=== PATIENT | male | born 1960 | race African-American/Black ===

== ENCOUNTER 2022-03-14 07:59 | Inpatient (IN) | payer MEDICARE, OTHER ==
[2022-03-14] MEDS ORDERED: Gadobenate Dimeglumine 529 MG/1 ML (20ML VIAL) ONE (08:00)
[2022-03-14] MEDS ORDERED: ISOVUE-370 76%-LOCM 1 ML ONE (08:00)
[2022-03-14 08:15] LABS: #Eosinphils 0.1 thou/uL (0.0-0.7); #Lymphocytes 1.8 thou/uL (1.20-3.40); #Monocytes 0.7 thou/uL (0.11-0.59); #Neutrophils 6.7 thou/uL (1.40-6.50); %Basophils 0.4 % (0.0-1.0); %Eosinophils 0.6 % (0.0-10.0); %Lymphocytes 19.2 % (21.0-51.0); %Monocytes 7.4 % (0.0-10.0); %Neutrophils 72.4 % (42.0-75.0); Hemoglobin 15.2 g/dL (14.0-18.0); Mean Corpuscular HGB CONC 33.4 g/dL (32.0-36.0); Mean Corpuscular Hemoglobin 30.4 pg (27.0-31.0); Mean Corpuscular Volume 90.8 fL (78.0-98.0); Mean Platelet Volume 9.6 fL (7.4-10.4); Platelet Count 186 thou/uL (130-400); RBC Distribution Width 13.2 % (11.5-14.5); Red Blood Cell (RBC) Count 5.01 mill/uL (4.70-6.10); White Blood Cell (WBC) Count 9.2 thou/uL (4.8-10.8)
[2022-03-14 08:23] LABS: INR-International Normal Ratio 0.9; Prothrombin Time 12.4 sec (12.0-14.7)
[2022-03-14 08:24] LABS: PTT 25.6 sec (22.9-36.1)
[2022-03-14 08:34] LABS: ALT (SGPT) 43 U/L (8-55); AST (SGOT) 31 U/L (5-34); Albumin 3.6 g/dL (3.5-5.0); Alkaline Phosphatase 105 U/L (40-110); Anion Gap 15 mmol/L (10-20); BUN (Urea Nitrogen) 20 mg/dL (8.4-25.7); Bilirubin, Total 0.3 mg/dL (0.2-1.2); CK (CPK) 112 U/L (30-200); Calc. Creatinine Clearance 0 mL/min (70-130); Calcium 10.1 mg/dL (7.8-10.44); Carbon Dioxide 25 mmol/L (22-29); Chloride 102 mmol/L (98-107); Estimated GFR 103; Globulin 4.2 g/dL (2.4-3.5); Glucose 262 mg/dL (70-105); Potassium 4.3 mmol/L (3.5-5.1); Protein, Total 7.8 g/dL (6.0-8.3); Sodium 138 mmol/L (136-145)
[2022-03-14 08:38] LABS: Acetaminophen Less than 10.0 mcg/mL (10.0-30.0); Alcohol Less than 10 mg/dL (Less than 10); Salicylate Less than 8.0 mg/dL (15.0-30.0)
[2022-03-14] MEDS ORDERED: Morphine 4 MG/ML VIAL ONE (09:26)
[2022-03-14] MEDS ORDERED: Ondansetron ODT 4 MG TAB PO PRN (10:43)
[2022-03-14] MEDS ORDERED: Senokot S 8.6-50 MG TAB PO PRN (10:43)
[2022-03-14] MEDS ORDERED: Bisacodyl 5 MG TAB PO PRN (10:43)
[2022-03-14] MEDS ORDERED: Dextrose 5% in Water 1,000 ML IV PRN (11:10)
[2022-03-14] MEDS ORDERED: Dextrose 50% Abboject 50 ML SYRINGE SLOW IVP PRN (11:10)
[2022-03-14 13:49] LABS: Amphetamine Not Detected (NotDetected); Barbiturates Screen Not Detected (NotDetected); Benzodiazepine Screen Not Detected (NotDetected); Cocaine Metabolite Screen Not Detected (NotDetected); Methadone Not Detected (NotDetected); Methamphetamine Not Detected (NotDetected); Opiate Screen Detected (NotDetected); Oxycodone Screen Not Detected (NotDetected); Phencyclidine (PCP) Not Detected (NotDetected); THC/Cannabinoid Screen Not Detected (NotDetected); Tricyclic Screen Not Detected (NotDetected)
[2022-03-14 13:55] LABS: Bilirubin Negative (Negative); Blood, Urine Negative (Negative); Clarity Clear (Clear); Glucose, Urine (Dipstick) Greater than 1000 mg/dL (Negative); Ketone, Urine Negative (Negative); Leukocyte Negative Leu/uL (Negative); Nitrite Negative (Negative); Protein, Urine (Dipstick) 20 mg/dL (Neg-Trace); Specific Gravity, Urine 1.048 (1.002-1.036); Urobilinogen Normal mg/dL (Less than 2)
[2022-03-14 13:56] VITALS: BMI 36.9
[2022-03-14] MEDS ORDERED: Naproxen 500 MG TAB PO SCH (14:45)
[2022-03-14] MEDS ORDERED: Insulin Glargine 30 UNITS/0.3 ML VIAL SC SCH (15:00)
[2022-03-14] MEDS: Acetaminophen 500 MG TAB PO SCH ×2 (15:25→22:31)
[2022-03-14] MEDS: HumaLOG 300 UNITS/3 ML VIAL SC SCH (16:50)
[2022-03-14] MEDS: HYDROcodone/Acetaminophen 5/325 mg Tablet PO PRN ×2 (16:54→22:29)
[2022-03-14] MEDS: metFORMIN 500 MG TAB PO SCH (16:55)
[2022-03-14] MEDS: Famotidine 20 MG TAB PO SCH (22:28)
[2022-03-14] MEDS: Mycophenolate 250 MG CAP PO SCH (22:29)
[2022-03-14] MEDS: Pyridostigmine Bromide IR 60 MG TAB PO SCH (22:30)
[2022-03-14] MEDS: Gabapentin 300 MG CAP PO SCH (22:30)
[2022-03-14] MEDS: Naproxen 500 MG TAB PO SCH (22:31)
[2022-03-14] MEDS: Simvastatin 10 MG TAB PO SCH (22:38)
[2022-03-14] MEDS: HumaLOG 300 UNITS/3 ML VIAL SC PRN (22:38)
[2022-03-15] MEDS: HumaLOG 300 UNITS/3 ML VIAL SC PRN ×3 (05:35→17:24)
[2022-03-15] MEDS: Levothyroxine Sodium 125 MCG TAB PO SCH (05:36)
[2022-03-15 05:43] LABS: #Eosinphils 0.1 thou/uL (0.0-0.7); #Lymphocytes 3.1 thou/uL (1.20-3.40); #Monocytes 1.1 thou/uL (0.11-0.59); #Neutrophils 6.7 thou/uL (1.40-6.50); %Basophils 0.4 % (0.0-1.0); %Lymphocytes 28.2 % (21.0-51.0); %Monocytes 9.6 % (0.0-10.0); %Neutrophils 60.9 % (42.0-75.0); Mean Corpuscular Hemoglobin 29.6 pg (27.0-31.0); Mean Corpuscular Volume 92.6 fL (78.0-98.0); Mean Platelet Volume 9.4 fL (7.4-10.4); Platelet Count 190 thou/uL (130-400); RBC Distribution Width 13.5 % (11.5-14.5); Red Blood Cell (RBC) Count 5.05 mill/uL (4.70-6.10); White Blood Cell (WBC) Count 10.9 thou/uL (4.8-10.8)
[2022-03-15 06:05] LABS: Anion Gap 13 mmol/L (10-20); BUN (Urea Nitrogen) 25 mg/dL (8.4-25.7); Calc. Creatinine Clearance 107 mL/min (70-130); Calcium 9.6 mg/dL (7.8-10.44); Carbon Dioxide 26 mmol/L (22-29); Chloride 103 mmol/L (98-107); Estimated GFR 76; Glucose 272 mg/dL (70-105); Potassium 3.9 mmol/L (3.5-5.1); Sodium 138 mmol/L (136-145)
[2022-03-15] MEDS: metFORMIN 500 MG TAB PO SCH ×2 (07:58→17:57)
[2022-03-15] MEDS ORDERED: Enoxaparin Sodium 40 MG/0.4 ML SYRINGE SC SCH (09:00)
[2022-03-15] MEDS: Lisinopril 2.5 MG TAB PO SCH (09:36)
[2022-03-15] MEDS: DULoxetine 30 MG CAP PO SCH (09:36)
[2022-03-15] MEDS: Mycophenolate 250 MG CAP PO SCH ×2 (09:37→20:35)
[2022-03-15] MEDS: Acetaminophen 500 MG TAB PO SCH ×3 (09:38→20:35)
[2022-03-15] MEDS: Gabapentin 300 MG CAP PO SCH ×3 (09:39→20:35)
[2022-03-15] MEDS: predniSONE 20 MG TAB PO SCH (09:40)
[2022-03-15] MEDS: Naproxen 500 MG TAB PO SCH ×2 (09:40→20:36)
[2022-03-15] MEDS: Famotidine 20 MG TAB PO SCH ×2 (09:40→20:36)
[2022-03-15] MEDS: Pyridostigmine Bromide IR 60 MG TAB PO SCH ×2 (09:40→20:36)
[2022-03-15] MEDS: Insulin Glargine 30 UNITS/0.3 ML VIAL SC SCH (09:41)
[2022-03-15] MEDS: Empagliflozin 10 MG TAB PO SCH (09:41)
[2022-03-15] MEDS: HumaLOG 300 UNITS/3 ML VIAL SC SCH ×3 (09:42→17:23)
[2022-03-15] MEDS: Simvastatin 10 MG TAB PO SCH (20:36)
[2022-03-15] MEDS ORDERED: Tamsulosin HCl 0.4 MG CAP PO SCH (21:00)
[2022-03-15] MEDS ORDERED: Insulin Glargine 30 UNITS/0.3 ML VIAL SC SCH (21:00)
[2022-03-16] MEDS: HYDROcodone/Acetaminophen 5/325 mg Tablet PO PRN (04:07)
[2022-03-16 04:44] LABS: #Lymphocytes 1.2 thou/uL (1.20-3.40); #Monocytes 0.8 thou/uL (0.11-0.59); #Neutrophils 9.7 thou/uL (1.40-6.50); %Basophils 0.4 % (0.0-1.0); %Eosinophils 0.1 % (0.0-10.0); %Neutrophils 82.5 % (42.0-75.0); Hemoglobin 14.2 g/dL (14.0-18.0); Mean Corpuscular HGB CONC 31.7 g/dL (32.0-36.0); Mean Corpuscular Hemoglobin 29.1 pg (27.0-31.0); Mean Corpuscular Volume 91.6 fL (78.0-98.0); Mean Platelet Volume 9.5 fL (7.4-10.4); Platelet Count 181 thou/uL (130-400); RBC Distribution Width 13.4 % (11.5-14.5); Red Blood Cell (RBC) Count 4.87 mill/uL (4.70-6.10); White Blood Cell (WBC) Count 11.8 thou/uL (4.8-10.8)
[2022-03-16] MEDS: Levothyroxine Sodium 125 MCG TAB PO SCH (04:56)
[2022-03-16 05:14] LABS: Anion Gap 15 mmol/L (10-20); BUN (Urea Nitrogen) 26 mg/dL (8.4-25.7); Calc. Creatinine Clearance 134 mL/min (70-130); Calcium 9.4 mg/dL (7.8-10.44); Carbon Dioxide 24 mmol/L (22-29); Chloride 106 mmol/L (98-107); Estimated GFR 98; Glucose 215 mg/dL (70-105); Potassium 4.3 mmol/L (3.5-5.1); Sodium 141 mmol/L (136-145)
[2022-03-16] MEDS: HumaLOG 300 UNITS/3 ML VIAL SC PRN ×2 (06:39→11:57)
[2022-03-16] MEDS: Mycophenolate 250 MG CAP PO SCH (08:49)
[2022-03-16] MEDS: Lisinopril 2.5 MG TAB PO SCH (08:49)
[2022-03-16] MEDS: Acetaminophen 500 MG TAB PO SCH ×2 (08:50→14:28)
[2022-03-16] MEDS: Famotidine 20 MG TAB PO SCH (08:51)
[2022-03-16] MEDS: Naproxen 500 MG TAB PO SCH (08:51)
[2022-03-16] MEDS: predniSONE 20 MG TAB PO SCH (08:51)
[2022-03-16] MEDS: Pyridostigmine Bromide IR 60 MG TAB PO SCH (08:52)
[2022-03-16] MEDS: Gabapentin 300 MG CAP PO SCH ×2 (08:52→14:27)
[2022-03-16] MEDS: Empagliflozin 10 MG TAB PO SCH (08:52)
[2022-03-16] MEDS: Insulin Glargine 30 UNITS/0.3 ML VIAL SC SCH (08:53)
[2022-03-16] MEDS: DULoxetine 30 MG CAP PO SCH (08:53)
[2022-03-16] MEDS: HumaLOG 300 UNITS/3 ML VIAL SC SCH ×2 (08:54→11:57)
[2022-03-16] MEDS ORDERED: CONFIRM ALL DAY 1 DOSES ARE TIMED FOR DAY 1 FS SCH (09:30)
[2022-03-16] MEDS ORDERED: methylPREDNISolone 4 mg Tablet PO SCH (12:00)
[2022-03-16 12:12] VITALS: BP 116/80; TEMP 97.7
[2022-03-17] MEDS ORDERED: methylPREDNISolone 4 mg Tablet PO SCH ×2 (08:00→21:00)
[2022-03-18] MEDS ORDERED: methylPREDNISolone 4 mg Tablet PO SCH (08:00)
[2022-03-19] MEDS ORDERED: methylPREDNISolone 4 mg Tablet PO SCH (08:00)
[2022-03-20] MEDS ORDERED: methylPREDNISolone 4 mg Tablet PO SCH (08:00)
[2022-03-21] MEDS ORDERED: methylPREDNISolone 4 mg Tablet PO SCH (08:00)
== END 2022-03-16 15:38 | disposition home health service (06) | DRG 93 ==
LOC: ERS 07:59 → ERHOLD 10:18 → NEURO 13:16 → OBSVTOIN 03-15 12:36
PROVIDERS: ADMIT Family Medicine; ATTEND Family Medicine
DX: G95.19 Other vascular myelopathies (principal); Z20.822 Contact with and (suspected) exposure to COVID-19; G70.00 Myasthenia gravis without (acute) exacerbation; E11.9 Type 2 diabetes mellitus without complications; I10 Essential (primary) hypertension; R33.9 Retention of urine, unspecified; Z79.899 Other long term (current) drug therapy; Z79.4 Long term (current) use of insulin; Z79.890 Hormone replacement therapy
CPT/HCPCS: 36415; 36416; 70450; 70496; 70498; 70551; 71045; 72050; 72125; 72141; 72142; 80048; 80053; 80306; 80307; 82550; 83605; 84484; 85025; 85610; 85652; 85730; 86140; 93005; 94760; 96374; A9577; J1815; J2270; J7509; J7512; J7517; Q9966; U0003; U0005

== ENCOUNTER 2022-03-26 09:22 | Emergency (ER) | payer MEDICARE ==
[2022-03-26 10:43] LABS: Bacteria/HPF 2+ HPF (None Seen); Bilirubin Negative (Negative); Blood, Urine 3+ (Negative); Glucose, Urine (Dipstick) Greater than 1000 mg/dL (Negative); Ketone, Urine Negative (Negative); Leukocyte 500 Leu/uL (Negative); Nitrite Negative (Negative); Protein, Urine (Dipstick) 200 mg/dL (Neg-Trace); RBC/HPF Greater than 50 HPF (0-3); Specific Gravity, Urine 1.027 (1.002-1.036); Squamous Epithelial 0-3 HPF (0-3); Urobilinogen Normal mg/dL (Less than 2); WBC/HPF Greater than 50 HPF (0-3); pH, Urine 5.5 (5.0-9.0)
[2022-03-26 10:49] LABS: Clarity Turbid (Clear)
[2022-03-26 10:58] LABS: #Eosinphils 0.1 thou/uL (0.0-0.7); #Lymphocytes 1.9 thou/uL (1.20-3.40); #Monocytes 0.8 thou/uL (0.11-0.59); %Basophils 0.4 % (0.0-1.0); %Eosinophils 0.6 % (0.0-10.0); %Lymphocytes 19.7 % (21.0-51.0); %Monocytes 8.2 % (0.0-10.0); %Neutrophils 71.2 % (42.0-75.0); Mean Corpuscular HGB CONC 32.4 g/dL (32.0-36.0); Mean Corpuscular Hemoglobin 29.9 pg (27.0-31.0); Mean Corpuscular Volume 92.2 fL (78.0-98.0); Mean Platelet Volume 9.3 fL (7.4-10.4); Platelet Count 187 thou/uL (130-400); RBC Distribution Width 13.1 % (11.5-14.5); Red Blood Cell (RBC) Count 4.68 mill/uL (4.70-6.10); White Blood Cell (WBC) Count 9.9 thou/uL (4.8-10.8)
[2022-03-26 11:15] LABS: ALT (SGPT) 24 U/L (8-55); AST (SGOT) 17 U/L (5-34); Alkaline Phosphatase 97 U/L (40-110); Anion Gap 14 mmol/L (10-20); BUN (Urea Nitrogen) 26 mg/dL (8.4-25.7); Bilirubin, Total 0.4 mg/dL (0.2-1.2); Calc. Creatinine Clearance 0 mL/min (70-130); Calcium 9.5 mg/dL (7.8-10.44); Carbon Dioxide 25 mmol/L (23-31); Chloride 101 mmol/L (98-107); Estimated GFR 98; Glucose 384 mg/dL (80-115); Potassium 3.9 mmol/L (3.5-5.1); Sodium 136 mmol/L (136-145)
== END 2022-03-26 11:40 | disposition home or self-care (01) ==
LOC: ERS 09:22
DX: N39.0 Urinary tract infection, site not specified (principal); G70.00 Myasthenia gravis without (acute) exacerbation; E11.40 Type 2 diabetes mellitus with diabetic neuropathy, unspecified; E78.5 Hyperlipidemia, unspecified; Z79.899 Other long term (current) drug therapy; Z79.4 Long term (current) use of insulin
CPT/HCPCS: 80053; 81003; 81015; 83880; 84484; 85025; 87077; 87086

== ENCOUNTER 2022-03-27 18:19 | Inpatient (IN) | payer MEDICARE ==
[2022-03-27] MEDS ORDERED: Norepinephrine 4 MG/4 ML VIAL ONE ×2 (18:46→18:47)
[2022-03-27 19:02] LABS: #Basophils 0.1 thou/uL (0.0-0.2); #Neutrophils 12.1 thou/uL (1.40-6.50); %Basophils 0.7 % (0.0-1.0); %Eosinophils 0.2 % (0.0-10.0); %Lymphocytes 12.4 % (21.0-51.0); %Monocytes 12.5 % (0.0-10.0); %Neutrophils 74.3 % (42.0-75.0); Hemoglobin 13.2 g/dL (14.0-18.0); Mean Corpuscular HGB CONC 31.6 g/dL (32.0-36.0); Mean Corpuscular Hemoglobin 29.3 pg (27.0-31.0); Mean Platelet Volume 9.2 fL (7.4-10.4); Platelet Count 185 thou/uL (130-400); RBC Distribution Width 13.3 % (11.5-14.5); White Blood Cell (WBC) Count 16.2 thou/uL (4.8-10.8)
[2022-03-27] MEDS ORDERED: Piperacillin/Tazobactam 4.5 GM VIAL ONE (19:09)
[2022-03-27] MEDS ORDERED: IMMUNE GLOBULIN IVPB SCH (19:15)
[2022-03-27] MEDS ORDERED: ADMIXTURE FEE IVPB SCH (19:15)
[2022-03-27] MEDS ORDERED: Propofol 1,000 MG/100 ML VIAL IV ONE (19:18)
[2022-03-27] MEDS ORDERED: Rocuronium Bromide 10 MG/ML (10ML VIAL) ONE (19:18)
[2022-03-27 19:20] LABS: Bilirubin Negative (Negative); Blood, Urine Large (Negative); Glucose, Urine (Dipstick) 100 mg/dL (Negative); Ketone, Urine Negative (Negative); Leukocyte Large (Negative); Nitrite Negative (Negative); Protein, Urine (Dipstick) 100 mg/dL (Neg-Trace); Urobilinogen 0.2 mg/dL (Less than 2)
[2022-03-27 19:24] LABS: Lipase 11 U/L (8-78); Magnesium 1.2 mg/dL (1.6-2.6)
[2022-03-27 19:26] LABS: Clarity Hazy (Clear)
[2022-03-27 19:27] LABS: Specific Gravity, Urine 1.002 (1.002-1.036)
[2022-03-27 19:28] LABS: Bacteria/HPF 2+ HPF (None Seen); Squamous Epithelial 0-3 HPF (0-3)
[2022-03-27] MEDS ORDERED: Midazolam HCl 5 mg/ml Vial ONE (19:34)
[2022-03-27 19:42] LABS: Analyzer IN Cardio ER; Base Excess (BEa) -7.1 mEq/L (-2.0 to +3.0); CO2 Tension 35.3 mmHg (35.0-45.0); Calcium, Ionized (arterial) 1.19 mmol/L (1.12-1.30); Carboxyhemoglobin (COHb) 0.3 gm% (0.0-3.0); Hemoglobin (Hb) 13.8 g/dL (14.0-18.0); O2 Tension (PaO2), arterial 235.6 mmHg (> 80.0); Potassium - ABG Lab 3.48 mmol/L (3.70-5.30); pH, Arterial 7.33 (7.35-7.45)
[2022-03-27 19:45] LABS: Puncture Site LRA
[2022-03-27 19:46] LABS: ALT (SGPT) 25 U/L (8-55); AST (SGOT) 36 U/L (5-34); Albumin 2.6 g/dL (3.4-4.8); Alkaline Phosphatase 97 U/L (40-110); Anion Gap 19 mmol/L (10-20); BUN (Urea Nitrogen) 21 mg/dL (8.4-25.7); Bilirubin, Total 0.5 mg/dL (0.2-1.2); Calc. Creatinine Clearance 0 mL/min (70-130); Carbon Dioxide 16 mmol/L (23-31); Chloride 109 mmol/L (98-107); Estimated GFR 36; Globulin 4.3 g/dL (2.4-3.5); Glucose 270 mg/dL (80-115); Potassium 4.7 mmol/L (3.5-5.1); Protein, Total 6.9 g/dL (5.8-8.1); Sodium 139 mmol/L (136-145)
[2022-03-27 19:46] LABS: ALV-art Gradient 76.775 mmHg (0-20)
[2022-03-27] MEDS ORDERED: Vancomycin 1 GM/200 ML BAG ONE (20:08)
[2022-03-27] MEDS ORDERED: Acetaminophen 650 MG Suppository ONE (20:25)
[2022-03-27] MEDS ORDERED: Acetaminophen 325 MG Suppository ONE (20:25)
[2022-03-27] MEDS ORDERED: Fentanyl CADD 100 ML IV SCH (21:00)
[2022-03-27] MEDS ORDERED: Acetaminophen 325 MG TAB PO PRN (21:16)
[2022-03-27] MEDS ORDERED: Acetaminophen 650 MG Suppository PR PRN (21:16)
[2022-03-27] MEDS ORDERED: Ondansetron PF 4 MG/2 ML Vial IVP PRN (21:16)
[2022-03-27] MEDS ORDERED: Ondansetron ODT 4 MG TAB PO PRN (21:16)
[2022-03-27] MEDS ORDERED: NOREPINEPHRINE 8 MG/250 ML-D5W 250 ML IVPB PRN (21:19)
[2022-03-27] MEDS ORDERED: Ventilator Sedation Protocol 1 EACH FS SCH (21:30)
[2022-03-27] MEDS ORDERED: Midazolam HCl 2 mg/2 ml Vial SLOW IVP PRN (21:34)
[2022-03-27 21:36] LABS: SARS-CoV-2 NAA Rapid Test Not Detected (NotDetected)
[2022-03-27] MEDS ORDERED: Morphine 2 MG/ML VIAL SLOW IVP PRN (21:45)
[2022-03-27] MEDS ORDERED: DISCONTINUE PREVIOUS NARCOTIC PAIN MEDICATIONS AND BENZODIAZEPINES FS SCH (21:45)
[2022-03-27] MEDS ORDERED: Fentanyl BOLUS 250 ML IVPB PRN (21:45)
[2022-03-27] MEDS ORDERED: Propofol BOLUS 1,000 MG/100 ML VIAL IV PRN (21:45)
[2022-03-27] MEDS ORDERED: diphenhydrAMINE 50 MG/ML VIAL ONE (21:48)
[2022-03-27] MEDS ORDERED: methylPREDNISolone Sod Succ/PF 125 MG/2 ML VIAL ONE (21:48)
[2022-03-27] MEDS ORDERED: EPINEPHrine 1 MG/10 ML Abboject SYRINGE ONE (21:48)
[2022-03-27] MEDS ORDERED: EPINEPHrine 1 MG/ML VIAL ONE (21:52)
[2022-03-27] MEDS ORDERED: Meropenem 1 GM in Sodium Chloride 0.9% 100 ML IVPB SCH ×2 (22:00→23:00)
[2022-03-27 22:41] LABS: Hemoglobin A1c 10.6 % (4.0-6.0)
[2022-03-27] MEDS ORDERED: Dextrose 50% Abboject 50 ML SYRINGE SLOW IVP PRN (22:42)
[2022-03-27] MEDS ORDERED: Dextrose 5% in Water 1,000 ML IV PRN (22:42)
[2022-03-27] MEDS ORDERED: HumaLOG 300 UNITS/3 ML VIAL SC PRN (22:42)
[2022-03-27] MEDS ORDERED: Vancomycin 1 GM in Premix Bag 1 BAG IVPB SCH (23:00)
[2022-03-27] MEDS ORDERED: Magnesium Sulfate In Water 4 GM in Premix Bag 1 BAG IVPB SCH (23:00)
[2022-03-27] MEDS: Sodium Chloride 0.9% 1,000 ML IV SCH (23:39)
[2022-03-28] MEDS: HumaLOG 300 UNITS/3 ML VIAL SC PRN ×4 (00:02→21:12)
[2022-03-28 05:32] LABS: Anion Gap 18 mmol/L (10-20); BUN (Urea Nitrogen) 20 mg/dL (8.4-25.7); Calc. Creatinine Clearance 74 mL/min (70-130); Calcium 8.1 mg/dL (7.8-10.44); Carbon Dioxide 14 mmol/L (23-31); Chloride 107 mmol/L (98-107); Estimated GFR 47; Glucose 460 mg/dL (80-115); Sodium 134 mmol/L (136-145)
[2022-03-28] MEDS: Sodium Chloride 0.9% 1,000 ML IV SCH ×3 (05:32→15:58)
[2022-03-28 05:54] LABS: Band 8 % (5-11); Hemoglobin 12.7 g/dL (14.0-18.0); Hypochromia SLIGHT = 6-15 cells (100X) (0-5/hpf); Lymphocytes 1 % (21-51); MDiff Complete? YES; Mean Corpuscular HGB CONC 31.2 g/dL (32.0-36.0); Mean Corpuscular Hemoglobin 29.4 pg (27.0-31.0); Mean Corpuscular Volume 94.2 fL (78.0-98.0); Mean Platelet Volume 9.5 fL (7.4-10.4); Monocytes 1 % (0-10); Neutrophil 89 % (42-75); Platelet Count 158 thou/uL (130-400); Platelet Morphology Comment Appears Adequate; Polychromasia SLIGHT = 2-3 cells (100X) (0-2/hpf); RBC Distribution Width 13.4 % (11.5-14.5); White Blood Cell (WBC) Count 16.5 thou/uL (4.8-10.8)
[2022-03-28] MEDS: Enoxaparin Sodium 40 MG/0.4 ML SYRINGE SC SCH (07:23)
[2022-03-28] MEDS: Propofol 1,000 MG/100 ML VIAL IV PRN ×2 (07:23→15:58)
[2022-03-28 08:05] LABS: Legionella Urinary Ag Negative (Negative); Strep pneumo Urine Ag NEGATIVE (NEGATIVE)
[2022-03-28] MEDS ORDERED: Meropenem 1 GM in Sodium Chloride 0.9% 100 ML IVPB SCH (09:00)
[2022-03-28] MEDS ORDERED: Pyridostigmine Bromide IR 60 MG TAB PO SCH ×2 (09:00)
[2022-03-28] MEDS: Meropenem 1 GM in Sodium Chloride 0.9% 100 ML IVPB SCH ×2 (09:20→15:59)
[2022-03-28] MEDS: Pantoprazole 40 MG VIAL IVP SCH (09:24)
[2022-03-28] MEDS: Insulin Glargine 30 UNITS/0.3 ML VIAL SC SCH ×2 (09:24→21:42)
[2022-03-28] MEDS: methylPREDNISolone Sod Succ 1 GM, Admixture Fee 1 EACH in Sodium Chloride 0.9% 250 ML 2... IVPB SCH (10:05)
[2022-03-28] MEDS: Mycophenolate 250 MG CAP PO SCH ×2 (12:28→20:58)
[2022-03-28] MEDS: Pyridostigmine Bromide IR 60 MG TAB PO SCH ×2 (15:41→21:05)
[2022-03-28] MEDS: Latanoprost 0.005% Ophth Soln 2.5 ml Bottle EA EYE SCH (20:57)
[2022-03-28] MEDS: Vancomycin 1.5 GRAM/300 ML BAG 1.5 GM in Premix Bag 1 BAG IVPB SCH (21:06)
[2022-03-28] MEDS ORDERED: Fentanyl CADD 100 ML ONE (23:26)
[2022-03-28] MEDS: Fentanyl CADD 100 ML IV SCH (23:30)
[2022-03-29] MEDS: Meropenem 1 GM in Sodium Chloride 0.9% 100 ML IVPB SCH ×3 (00:19→16:22)
[2022-03-29] MEDS: Propofol 1,000 MG/100 ML VIAL IV PRN ×4 (00:23→17:05)
[2022-03-29] MEDS: Sodium Chloride 0.9% 1,000 ML IV SCH ×2 (03:30→11:32)
[2022-03-29] MEDS: Levothyroxine Sodium 125 MCG TAB PO SCH (05:46)
[2022-03-29] MEDS: HumaLOG 300 UNITS/3 ML VIAL SC PRN ×4 (05:46→22:48)
[2022-03-29 07:28] LABS: Actual Bicarbonate (HCO3a) 16.8 mEq/L (22-28); CO2 Tension 29.1 mmHg (35.0-45.0); Calcium, Ionized (arterial) 1.21 mmol/L (1.12-1.30); Carboxyhemoglobin (COHb) 0.6 gm% (0.0-3.0); Hemoglobin (Hb) 13.4 g/dL (14.0-18.0); O2 Tension (PaO2), arterial 102.5 mmHg (> 80.0); Potassium - ABG Lab 4.24 mmol/L (3.70-5.30); pH, Arterial 7.38 (7.35-7.45)
[2022-03-29 07:30] LABS: Hemoglobin 12.8 g/dL (14.0-18.0); Mean Corpuscular HGB CONC 31.8 g/dL (32.0-36.0); Mean Corpuscular Hemoglobin 29.4 pg (27.0-31.0); Mean Corpuscular Volume 92.3 fL (78.0-98.0); Mean Platelet Volume 10.2 fL (7.4-10.4); Platelet Count 157 thou/uL (130-400); RBC Distribution Width 13.4 % (11.5-14.5); Red Blood Cell (RBC) Count 4.34 mill/uL (4.70-6.10); White Blood Cell (WBC) Count 19.1 thou/uL (4.8-10.8)
[2022-03-29] MEDS: Pantoprazole 40 MG VIAL IVP SCH (07:41)
[2022-03-29] MEDS: Pyridostigmine Bromide IR 60 MG TAB PO SCH ×3 (07:42→20:46)
[2022-03-29] MEDS: Enoxaparin Sodium 40 MG/0.4 ML SYRINGE SC SCH (07:42)
[2022-03-29] MEDS: Insulin Glargine 30 UNITS/0.3 ML VIAL SC SCH ×3 (07:42→20:45)
[2022-03-29] MEDS: Mycophenolate 250 MG CAP PO SCH ×2 (07:49→20:46)
[2022-03-29] MEDS: methylPREDNISolone Sod Succ 1 GM, Admixture Fee 1 EACH in Sodium Chloride 0.9% 250 ML 2... IVPB SCH (07:50)
[2022-03-29 08:29] LABS: Band 7 % (5-11); Lymphocytes 7 % (21-51); MDiff Complete? YES; Monocytes 3 % (0-10); Neutrophil 83 % (42-75); RBC Morphology Normal
[2022-03-29 08:43] LABS: Anion Gap 20 mmol/L (10-20); Chloride 112 mmol/L (98-107); Potassium 4.5 mmol/L (3.5-5.1); Sodium 140 mmol/L (136-145)
[2022-03-29 08:45] LABS: BUN (Urea Nitrogen) 25 mg/dL (8.4-25.7); CK (CPK) 103 U/L (30-200); Calc. Creatinine Clearance 90 mL/min (70-130); Calcium 8.7 mg/dL (7.8-10.44); Carbon Dioxide 13 mmol/L (23-31); Estimated GFR 60; Glucose 362 mg/dL (80-115); Magnesium 2.2 mg/dL (1.6-2.6)
[2022-03-29] MEDS ORDERED: OCTAGAM 10% (10 GM/100 ML VIAL) IVPB SCH (09:00)
[2022-03-29 10:06] LABS: ALV-art Gradient 110.675 mmHg (0-20); Puncture Site RRA
[2022-03-29] MEDS: ADMIXTURE FEE IVPB SCH (10:24)
[2022-03-29] MEDS: IMMUNE GLOBULIN IVPB SCH (10:24)
[2022-03-29] MEDS: HumuLIN 70/30 (300 UNITS/3 ML VIAL) SC SCH ×2 (11:28→20:47)
[2022-03-29] MEDS: Latanoprost 0.005% Ophth Soln 2.5 ml Bottle EA EYE SCH (20:48)
[2022-03-29 22:27] LABS: Vancomycin, Trough 11.4 ug/mL
[2022-03-29] MEDS ORDERED: VANCOMYCIN 2 GRAM/500 ML BAG 2 GM in Premix Bag 1 BAG IVPB SCH (23:00)
[2022-03-29] MEDS: Vancomycin 1.5 GRAM/300 ML BAG 1.5 GM in Premix Bag 1 BAG IVPB SCH (23:17)
[2022-03-30] MEDS: Sodium Chloride 0.9% 1,000 ML IV SCH ×3 (01:37→21:23)
[2022-03-30] MEDS: Meropenem 1 GM in Sodium Chloride 0.9% 100 ML IVPB SCH ×3 (01:42→16:41)
[2022-03-30] MEDS: Propofol 1,000 MG/100 ML VIAL IV PRN ×4 (03:03→20:11)
[2022-03-30] MEDS: HumaLOG 300 UNITS/3 ML VIAL SC PRN ×4 (04:40→21:19)
[2022-03-30] MEDS: Levothyroxine Sodium 125 MCG TAB PO SCH (05:20)
[2022-03-30 05:29] LABS: #Lymphocytes 0.3 thou/uL (1.20-3.40); #Monocytes 0.4 thou/uL (0.11-0.59); #Neutrophils 11.5 thou/uL (1.40-6.50); %Lymphocytes 2.7 % (21.0-51.0); %Monocytes 2.9 % (0.0-10.0); %Neutrophils 94.4 % (42.0-75.0); Hemoglobin 12.9 g/dL (14.0-18.0); Mean Corpuscular HGB CONC 32.5 g/dL (32.0-36.0); Mean Corpuscular Hemoglobin 29.2 pg (27.0-31.0); Mean Platelet Volume 10.3 fL (7.4-10.4); Platelet Count 167 thou/uL (130-400); RBC Distribution Width 13.3 % (11.5-14.5); Red Blood Cell (RBC) Count 4.42 mill/uL (4.70-6.10); White Blood Cell (WBC) Count 12.2 thou/uL (4.8-10.8)
[2022-03-30 05:52] LABS: Anion Gap 15 mmol/L (10-20); BUN (Urea Nitrogen) 24 mg/dL (8.4-25.7); Calc. Creatinine Clearance 107 mL/min (70-130); Calcium 8.6 mg/dL (7.8-10.44); Carbon Dioxide 21 mmol/L (23-31); Chloride 106 mmol/L (98-107); Estimated GFR 76; Glucose 295 mg/dL (80-115); Potassium 3.3 mmol/L (3.5-5.1); Sodium 139 mmol/L (136-145)
[2022-03-30] MEDS: hydrALAZINE 20 MG/ML VIAL SLOW IVP PRN (06:42)
[2022-03-30 07:40] LABS: Actual Bicarbonate (HCO3a) 23.1 mEq/L (22-28); CO2 Tension 29.7 mmHg (35.0-45.0); Calcium, Ionized (arterial) 1.15 mmol/L (1.12-1.30); Carboxyhemoglobin (COHb) 0.3 gm% (0.0-3.0); Hemoglobin (Hb) 13.1 g/dL (14.0-18.0); O2 Tension (PaO2), arterial 101.6 mmHg (> 80.0); pH, Arterial 7.51 (7.35-7.45)
[2022-03-30 08:01] LABS: ALV-art Gradient 110.825 mmHg (0-20); Puncture Site LBA
[2022-03-30] MEDS: Fentanyl CADD 100 ML IV SCH (09:00)
[2022-03-30] MEDS: Enoxaparin Sodium 40 MG/0.4 ML SYRINGE SC SCH (09:00)
[2022-03-30] MEDS: Insulin Glargine 30 UNITS/0.3 ML VIAL SC SCH ×3 (09:01→21:23)
[2022-03-30] MEDS: HumuLIN 70/30 (300 UNITS/3 ML VIAL) SC SCH (09:02)
[2022-03-30] MEDS: Pantoprazole 40 MG VIAL IVP SCH (09:03)
[2022-03-30] MEDS: Mycophenolate 250 MG CAP PO SCH ×2 (09:03→21:19)
[2022-03-30] MEDS: Pyridostigmine Bromide IR 60 MG TAB PO SCH ×3 (09:16→21:19)
[2022-03-30] MEDS: methylPREDNISolone Sod Succ 1 GM, Admixture Fee 1 EACH in Sodium Chloride 0.9% 250 ML 2... IVPB SCH (09:23)
[2022-03-30] MEDS ORDERED: Electrolyte Replacement Protocol 1 EACH FS ONE (10:21)
[2022-03-30] MEDS ORDERED: Potassium Chloride 20 MEQ TAB PER TUBE SCH (10:30)
[2022-03-30] MEDS: IMMUNE GLOBULIN IVPB SCH (10:31)
[2022-03-30] MEDS: ADMIXTURE FEE IVPB SCH (10:31)
[2022-03-30] MEDS ORDERED: Electrolyte Replacement Protocol FS PRN (10:45)
[2022-03-30] MEDS ORDERED: Lisinopril 2.5 MG TAB PO SCH (10:45)
[2022-03-30] MEDS: Latanoprost 0.005% Ophth Soln 2.5 ml Bottle EA EYE SCH (21:20)
[2022-03-31] MEDS: Meropenem 1 GM in Sodium Chloride 0.9% 100 ML IVPB SCH ×3 (00:21→16:57)
[2022-03-31] MEDS: Propofol 1,000 MG/100 ML VIAL IV PRN ×2 (02:45→09:52)
[2022-03-31] MEDS: HumaLOG 300 UNITS/3 ML VIAL SC PRN ×3 (04:48→15:52)
[2022-03-31 05:03] LABS: #Lymphocytes 0.2 thou/uL (1.20-3.40); #Monocytes 0.3 thou/uL (0.11-0.59); %Basophils 0.2 % (0.0-1.0); %Lymphocytes 2.8 % (21.0-51.0); %Monocytes 3.7 % (0.0-10.0); %Neutrophils 93.3 % (42.0-75.0); Mean Corpuscular HGB CONC 31.6 g/dL (32.0-36.0); Mean Corpuscular Hemoglobin 29.4 pg (27.0-31.0); Mean Platelet Volume 10.3 fL (7.4-10.4); Platelet Count 173 thou/uL (130-400); RBC Distribution Width 13.3 % (11.5-14.5); Red Blood Cell (RBC) Count 4.44 mill/uL (4.70-6.10); White Blood Cell (WBC) Count 7.5 thou/uL (4.8-10.8)
[2022-03-31] MEDS: Levothyroxine Sodium 125 MCG TAB PO SCH (05:18)
[2022-03-31 05:21] LABS: Anion Gap 10 mmol/L (10-20); BUN (Urea Nitrogen) 31 mg/dL (8.4-25.7); Calc. Creatinine Clearance 112 mL/min (70-130); Calcium 8.5 mg/dL (7.8-10.44); Carbon Dioxide 26 mmol/L (23-31); Chloride 107 mmol/L (98-107); Estimated GFR 79; Glucose 293 mg/dL (80-115); Potassium 4.1 mmol/L (3.5-5.1); Sodium 139 mmol/L (136-145)
[2022-03-31] MEDS: Sodium Chloride 0.9% 1,000 ML IV SCH ×2 (07:00→12:53)
[2022-03-31 07:59] LABS: ALV-art Gradient 87.475 mmHg (0-20); Actual Bicarbonate (HCO3a) 27.9 mEq/L (22-28); Base Excess (BEa) 2.3 mEq/L (-2.0 to +3.0); CO2 Tension 47.1 mmHg (35.0-45.0); Calcium, Ionized (arterial) 1.19 mmol/L (1.12-1.30); Carboxyhemoglobin (COHb) 0.4 gm% (0.0-3.0); Hemoglobin (Hb) 13.7 g/dL (14.0-18.0); O2 Tension (PaO2), arterial 103.2 mmHg (> 80.0); Potassium - ABG Lab 4.03 mmol/L (3.70-5.30); Puncture Site LBA; pH, Arterial 7.39 (7.35-7.45)
[2022-03-31] MEDS: Insulin Glargine 30 UNITS/0.3 ML VIAL SC SCH ×2 (08:16→20:52)
[2022-03-31] MEDS: Enoxaparin Sodium 40 MG/0.4 ML SYRINGE SC SCH (08:16)
[2022-03-31] MEDS: Mycophenolate 250 MG CAP PO SCH ×2 (08:17→20:55)
[2022-03-31] MEDS: Pantoprazole 40 MG VIAL IVP SCH (08:18)
[2022-03-31] MEDS: Pyridostigmine Bromide IR 60 MG TAB PO SCH ×3 (08:18→20:55)
[2022-03-31] MEDS ORDERED: Lisinopril 2.5 MG TAB PO SCH (09:00)
[2022-03-31] MEDS ORDERED: Atorvastatin Calcium 10 MG TAB PO SCH (09:00)
[2022-03-31] MEDS: hydrALAZINE 20 MG/ML VIAL SLOW IVP PRN (09:51)
[2022-03-31] MEDS: Fentanyl CADD 100 ML IV SCH (10:14)
[2022-03-31 12:41] VITALS: BMI 38.9
[2022-03-31 15:11] VITALS: BP 149/81
[2022-03-31] MEDS: Latanoprost 0.005% Ophth Soln 2.5 ml Bottle EA EYE SCH (20:52)
[2022-04-01] MEDS: Meropenem 1 GM in Sodium Chloride 0.9% 100 ML IVPB SCH (00:10)
[2022-04-01] MEDS: Sodium Chloride 0.9% 1,000 ML IV SCH (00:10)
[2022-04-01] MEDS: Propofol 1,000 MG/100 ML VIAL IV PRN (00:13)
[2022-04-01 03:25] VITALS: TEMP 98.4
== END 2022-04-01 04:57 | disposition short-term general hospital (02) | DRG 56 ==
LOC: ERS 18:19 → CCU 21:03
PROVIDERS: ADMIT Student in an Organized Health Care Education/Training Program; ATTEND Internal Medicine
PROC: 5A1955Z Respiratory Ventilation, Greater than 96 Consecutive Hours (ICD-10-PCS; principal; 2022-03-27)
PROC: 0BH18EZ Insertion of Endotracheal Airway into Trachea, Via Natural or Artificial Opening Endoscopic (ICD-10-PCS; 2022-03-27)
DX: G70.01 Myasthenia gravis with (acute) exacerbation (principal); A41.9 Sepsis, unspecified organism; R65.21 Severe sepsis with septic shock; J96.01 Acute respiratory failure with hypoxia; G93.41 Metabolic encephalopathy; T83.511A Infection and inflammatory reaction due to indwelling urethral catheter, initial encounter; N17.9 Acute kidney failure, unspecified; J98.11 Atelectasis; N39.0 Urinary tract infection, site not specified; E11.40 Type 2 diabetes mellitus with diabetic neuropathy, unspecified; I10 Essential (primary) hypertension; E78.5 Hyperlipidemia, unspecified; Y83.8 Other surgical procedures as the cause of abnormal reaction of the patient, or of later complication, without mention of misadventure at the time of the procedure; E83.42 Hypomagnesemia; E11.69 Type 2 diabetes mellitus with other specified complication; Z20.822 Contact with and (suspected) exposure to COVID-19; Z79.899 Other long term (current) drug therapy; Z79.4 Long term (current) use of insulin; Z79.84 Long term (current) use of oral hypoglycemic drugs
CPT/HCPCS: 31500; 36415; 36416; 36556; 36600; 51702; 71045; 74176; 80048; 80053; 80202; 81003; 81015; 82550; 82805; 83036; 83605; 83690; 83735; 83880; 84145; 84443; 84484; 85025; 87040; 87077; 87081; 87086; 87186; 87324; 87449; 87899; 93005; 94003; 94150; 94760; 96365; 96367; 96372; 96374; 96375; 99292; C9113; J0171; J0360; J1200; J1568; J1650; J1815; J2185; J2250; J2543; J2704; J2930; J3010; J3370; J3475; J3490; J7050; J7517